=== PATIENT | female | born 1960 | race African-American/Black ===

== ENCOUNTER 2025-03-24 11:19 | Emergency (ER) | payer SELFPAY ==
[2025-03-24] VITALS (10 sets, daily range): BP systolic 118–163; BP diastolic 78–86; PULSE 68–83; RESP 13–20; TEMP 36.6–36.7; O2SAT 95–100
--- NOTE | 2025-03-24 11:23 | PC.NURSE ---
FSBS 119. RN Notified
--- NOTE | 2025-03-24 11:26 | ECG_ITS ---
APPROVED REPORT Exam: Resting ECG HR:76 bpm ECG Measurements Heart Rate 76 AXES MI 199 P 58 QRSd 82 QRS 59 QT 372 T 19 QTc 403 Conclusion SINUS RHYTHM NORMAL ECG UNCONFIRMED REPORT Normal sinus rhythm. No ST elevations or depressions. Isolated T wave inversions in lead III that are nonspecific Electronically signed by : ELFEGO GOODMAN, 03/24/2025 16:18:16
--- NOTE | 2025-03-24 11:27 | XR_ITS ---
FINAL REPORT CLINICAL HISTORY: Nonspecific chest pain FINDINGS: A portable view of the chest is obtained. No prior exam for comparison. Cardiac and mediastinal silhouettes are normal. The lungs are clear. There is no pleural effusion or pneumothorax. IMPRESSION: No acute process on this portable exam. Reviewed, Interpreted and Dictated by Eliza Jimenez MD Transcribed by Trang Bender Authenticated and [facility]
--- NOTE | 2025-03-24 11:36 | HMH.EDGENADL ---
Discharge Plan Disposition Patient Disposition: Home, Self-Care Condition: Good Prescriptions Prescriptions: No Action atorvastatin [Lipitor] 10 mg Tablet 10 mg PO DAILY aspirin 325 mg Tablet 325 mg PO DAILY enalapril maleate 20 mg Tablet 20 mg PO DAILY glimepiride 1 mg Tablet 1 mg PO DAILY amlodipine 10 mg Tablet 10 mg PO DAILY dapaglifloz propaned-metformin [Xigduo XR] 5-1,000 mg Tablet, Ir - Er, Biphasic 24hr 1 tab PO DAILY Referrals Follow up/Referrals: Filemon Lara MD [Staff Physician, Cardiology] - See instructions Provider,MD Ruby [Primary Care Provider, Medical] - See instructions Activity Restrictions/Add. Instructions Additional Instructions/Restrictions: You do not have evidence of a heart attack today, however I do want you to follow-up with a engraver block. I am referring you to Dr. Lara. I encourage you to call the number provided to you over the next day or 2 to schedule an appointment. If you develop any new or worsening symptoms, such as worsening chest pain, shortness of breath, pain in your chest that radiates to your jaw, arm or back, return to the emergency department for evaluation. Clinical Impressions Clinical Impression: Chest pain Stand Alone Forms Stand Alone Forms: Work/School Release Print Language Print Language: Monegasque Discharge ED Provider: Baltazar Rose General Adult HPI General Chief complaint: Chest Pain Stated complaint: Chest Pain Time Seen by Provider: 03/24/25 11:22 History of Present Illness HPI narrative: Tirso Dominguez is a 64F with a past medical history of DM and HTN who presents to the ED for complaints of chest pain. 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 She denies any radiation of pain to her arm or back. She states similar things have happened intermittently in the past, most recently in June of last year. She denies any tobacco use or history of heart attacks, blood clots, hormone use, leg swelling, vomiting, or sweatiness. She states that she takes 325mg ASA daily and took it this morning. Related Data Home Medications ?Medication ?Instructions ?Recorded ?Confirmed amlodipine 10 mg tablet 10 mg PO DAILY 03/24/25 03/24/25 aspirin 325 mg tablet 325 mg PO DAILY 03/24/25 03/24/25 atorvastatin 10 mg tablet (Lipitor) 10 mg PO DAILY 03/24/25 03/24/25 dapagliflozin propaned 5 1 tab PO DAILY 03/24/25 03/24/25 mg-metformin ER 1,000 mg tablet, ext rel 24hr (Xigduo XR) enalapril maleate 20 mg tablet 20 mg PO DAILY 03/24/25 03/24/25 glimepiride 1 mg tablet 1 mg PO DAILY 03/24/25 03/24/25 Allergies Allergy/AdvReac Type Severity Reaction Status Date / Time No Known Allergies Allergy Verified 03/24/25 11:53 [facility] Disclaimer: The information contained in this section may have been updated after the patient was seen, as this information can be updated by other users. Social History Smoking Status: Never smoker alcohol intake: never current occupational status: employed Travel in the last 8 weeks?: None ROS Obtained: Yes Systems reviewed as appropriate & no additional complaints except as documented Physical Exam General General appearance: alert and in no apparent distress Head Head exam: atraumatic Eye Eye exam: Present normal appearance ENT ENT exam: Present normal external ear exam Neck Neck exam: Present full ROM Chest Chest inspection: Present symmetric chest wall rise Respiratory Respiratory exam: Present normal lung sounds bilaterally; Absent respiratory distress, wheezes or stridor Cardiovascular Cardiovascular exam: Present regular rate and normal rhythm Abdominal Exam Abdominal exam: Present soft; Absent distention, tenderness or guarding Extremities Exam Extremities exam: Present normal inspection Back Exam Back exam: Present normal inspection Neurological Exam Neurological exam: Present alert and oriented X3 Psychiatric Psychiatric exam: Present normal affect Skin Skin exam: Present warm and dry Medical Decision Making Medical Records Screening: Per USPSTF and CDC recommendations, given the prevalence of disease in our region, it is our hospital?s policy to screen for HIV and viral Hepatitis for all patients aged 18 and over and those with ongoing risk factors. Darrin Inquiry Pt receiving controlled substance: No Vital Signs: 03/24/25 11:40 03/24/25 11:44 03/24/25 11:57 Temperature 97.9 F Temperature Source Oral Pulse Rate 81 70 Pulse Rate [Left Radial] 71 Respiratory Rate 13 20 Blood Pressure 130/83 Blood Pressure [Right Arm] 163/83 H Blood Pressure Mean 99 Blood Pressure Mean [Right Arm] 109 02 Sat by Pulse Oximetry 100 100 Oxygen Delivery Method Room Air 03/24/25 12:00 03/24/25 12:30 03/24/25 13:00 Temperature Temperature Source Pulse Rate 83 75 71 Pulse Rate [Left Radial] Respiratory Rate 14 17 20 Blood Pressure 126/86 118/80 133/81 Blood Pressure [Right Arm] Blood Pressure Mean 96 90 Blood Pressure Mean [Right Arm] 02 Sat by Pulse Oximetry 100 100 95 Oxygen Delivery Method 03/24/25 13:30 03/24/25 14:00 03/24/25 14:30 Temperature Temperature Source Pulse Rate 69 68 69 Pulse Rate [Left Radial] Respiratory Rate 16 18 17 Blood Pressure 135/78 140/78 140/78 Blood Pressure [Right Arm] Blood Pressure Mean Blood Pressure Mean [Right Arm] 02 Sat by Pulse Oximetry 96 96 100 Oxygen Delivery Method 03/24/25 15:31 Temperature 98.1 F Temperature Source Pulse Rate 69 Pulse Rate [Left Radial] Respiratory Rate 20 Blood Pressure 140/78 Blood Pressure [Right Arm] Blood Pressure Mean Blood Pressure Mean [Right Arm] 02 Sat by Pulse Oximetry Oxygen Delivery Method Room Air Lab Data Lab Results 03/24/25 11:35: VBG pH 7.37, VBG pCO2 36.4, VBG pO2 52.3 H, VBG HCO3 20.9 L, VBG Total CO2 22.0 L, VBG O2 Saturation 85.4 H, VBG Base Excess -3.7 L, VBG Lactic Acid 2.8 H 03/24/25 11:40: WBC 4.9, RBC 5.31, Hgb 12.4, Hct 38.1, MCV 71.8 L, MCH 23.4 L, MCHC 32.5, RDW 15.6, Plt Count 276, MPV 9.8, Neut % (Auto) 38.2, Lymph % (Auto) 47.2, Harlan % (Auto) 9.3, Eos % (Auto) 4.5, Baso % (Auto) 0.4, Neut # (Auto) 1.9, Lymph # (Auto) 2.3, Harlan # (Auto) 0.5, Eos # (Auto) 0.2, Baso # (Auto) 0.0, D-Dimer 0.82 H, Sodium 141, Potassium 4.1, Chloride 108 H, Carbon Dioxide 22, Anion Gap 15.1 H, BUN 14, Creatinine 0.90, Estimated Creat Clear 71, Estimated GFR 63, Est GFR ( Amer) 76, Glucose 117 H, Calcium 9.9, Total Bilirubin 0.4, AST 34, ALT 32, Alkaline Phosphatase 61, Troponin I < 0.01, NT-Pro-B Natriuret Pep < 20.0, Total Protein 7.3, Albumin 4.7, Globulin 2.6, Albumin/Globulin Ratio 1.8, Lipase 259 03/24/25 14:43: Troponin I < 0.01 03/24/25 11:40 03/24/25 11:40 Orders (Tests/Meds): ED MEDICATIONS Discontinued Medications Generic Name Dose Route Start Last Admin Trade Name Freq PRN Reason Stop Dose Admin Lactated Ringer's 1,000 mls @ 150 mls/hr 03/24/25 12:45 03/24/25 12:53 Lactated Ringer's 1000 Ml Bag IV 04/23/25 12:44 150 mls/hr .[id number] JESSIKA Administration Nitroglycerin 0.4 mg 03/24/25 11:27 03/24/25 11:55 Nitroglycerin 0.4mg Sl Tablet SL 03/24/25 11:28 0.4 mg ONCE ONE Administration ORDERS Category Date Time Status CXR --portable [XR chest portable] Stat Exams 03/24/25 11:27 Completed BNP [NT Pro Brain Natriuretic Pep.] Stat Lab 03/24/25 11:40 Completed CBC w/Auto Diff [Complete Blood Count Auto Diff] Stat Lab 03/24/25 11:40 Completed CMP [Comprehensive Metabolic Panel] Stat Lab 03/24/25 11:40 Completed D-Dimer Stat Lab 03/24/25 11:40 Completed Lipase Stat Lab 03/24/25 11:40 Completed Troponin I Q3H Lab 03/24/25 14:43 Completed Troponin I Stat Lab 03/24/25 11:40 Completed VBG [Venous Blood Gas] Stat RT 03/24/25 11:35 Completed ECG Data Tracing #1: I reviewed this ECG and interpreted as documented below: Normal sinus rhythm. No ST elevation or depression. Isolated T wave inversions in lead III but nonspecific. QTc normal at 403 HEART Score History (anamnesis): Moderately suspicious ECG: Normal Age: 45-65 years Risk factors: 1-2 risk factors Troponin: </= normal limit HEART Score: 3 Medical Decision Narrative: Tirso Dominguez is a 64F with a past medical history of DM and HTN who presents to the ED for complaints of chest pain. 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 She denies any radiation of pain to her arm or back. She states similar things have happened intermittently in the past, most recently in June of last year. She denies any tobacco use or history of heart attacks, blood clots, hormone use, leg swelling, vomiting, or sweatiness. She states that she takes 325mg ASA daily and took it this morning. On arrival, patient is normotensive, heart rate within normal limits, breathing roughly on room air with oxygen saturation 100% on room air. Physical exam, as stated above, revealed an overall well appearing female in no significant distress. She is speaking full sentences, GCS 15. Cardiopulmonary exam is unremarkable. Abdomen soft, nontender nondistended. Patient does not smoke. Differential diagnosis includes, but is not limited to: ACS, pulmonary embolism, pneumonia, pericarditis, myocarditis, pneumothorax, among others. The most morbid conditions were considered and workup was based on these. Workup in the emergency department included: Troponin, 1 L lactated ringer, D-dimer, CMP, BNP, lipase, CBC with differential, VBG with lactic acid, chest x-ray, EKG. Patient was given 1 sublingual nitroglycerin Workup showed no leukocytosis, no anemia, D-dimer elevated at 0.82, however with age adjustment, is negative. pH normal at 7.37, lactate mildly elevated 2.8. Bicarb mildly low at 20.9. Sodium normal at 141, potassium normal at 4.1, anion gap mildly elevated 15.1, likely from mildly elevated lactic acid. No SERENITY. Troponin less than 0.01 x 2. BNP negative at less than 20. Lipase normal at 259. EKG is nonischemic. See interpretation above Chest x-ray interpreted by me personally. No focal consolidation, no pneumothorax, no widening of the mediastinum. No enlargement of the cardiac silhouette. Unremarkable chest x-ray. See radiology interpretation for additional details. Patient did have some relief of her symptoms with nitroglycerin. Her heart score is 3. Given this, it is felt the patient is appropriate for discharge at this time with outpatient cardiology follow-up. Will give referral to Dr. Lara. Patient was given strict return precautions for any worsening symptoms. All questions were answered. She demonstrated understanding and was in agreement this plan. She was then discharged from the emergency department in stable condition peer Critical Care Critical Care Time Critical Care Time: No
[2025-03-24 11:45] LABS: Hematocrit 38.1 % (37.0-47.0); Hemoglobin 12.4 g/dL (12.2-16.2); Immature Granulocytes % 0.4 %; Mean Corpuscular HGB Conc 32.5 g/dL (31.8-35.4); Mean Corpuscular Hemoglobin 23.4 pg (27.0-31.2); Mean Corpuscular Volume 71.8 fl (81-99); Nucleated Red Blood Cells % 0 %; Platelet Count 276 K/mm3 (142-424); Red Blood Count 5.31 M/mm3 (4.20-5.40); Red Cell Distribution Width-SD 39.0 fL; White Blood Count 4.9 K/mm3 (4.8-10.8)
[2025-03-24 11:50] LABS: VBG PCO2 36.4 mmol/L (35-51); VBG PH 7.37 mmol/L (7.31-7.41); VBG PO2 52.3 mmol/L (28-40)
[2025-03-24 11:51] LABS: Lactate Venous 2.8 mmol/L (0.4-2.0); VBG HCO3 20.9 mmol/L (23-30)
[2025-03-24] MEDS: NITROGLYCERIN 0.4MG SL TABLET 0.4 MG SL (11:55)
[2025-03-24 11:58] LABS: Alanine Aminotransferase 32 U/L (12-78); Albumin Level 4.7 g/dl (3.5-5.0); Albumin/Globulin Ratio 1.8 (1.1-1.8); Alkaline Phosphatase 61 U/L (38-126); Anion Gap 15.1 mEq/L (5-15); Aspartate Amino Transferase 34 U/L (14-36); Bilirubin,Total 0.4 mg/dl (0.2-1.3); Blood Urea Nitrogen 14 mg/dl (7-17); Calcium 9.9 mg/dl (8.4-10.2); Carbon Dioxide 22 mmol/L (22.0-30.0); Chloride 108 mmol/L (98-107); Creatinine Clearance Estimated 71 mL/min (50-200); Creatinine,Serum 0.90 mg/dl (0.52-1.04); Estimated Glomerular Filt Rate 63 ml/min (>60); GFR (African American) 76 ML/MIN (>60); Globulin 2.6 g/dL (1.3-3.2); Glucose 117 mg/dl (74-100); Lipase 259 U/L (23-300); Potassium 4.1 mmoL/L (3.5-5.1); Sodium 141 mmol/L (136-145); Total Protein,Serum 7.3 g/dl (6.3-8.2)
[2025-03-24 12:02] LABS: D-Dimer 0.82 ug/mL (0.0-0.5)
[2025-03-24 12:11] LABS: NT Pro Brain Natriuretic Pep. < 20.0 pg/mL (0-125)
[2025-03-24 12:14] LABS: Troponin I < 0.01 ng/ml (0.00-0.034)
[2025-03-24] MEDS: LACTATED RINGERS 1000ML 1,000 ML 150 ML IV (12:53)
--- NOTE | 2025-03-24 12:56 | PC.NURSE ---
per pt the nitro did help make her pain go away and she is pain free as of right now
[2025-03-24 15:18] LABS: Troponin I < 0.01 ng/ml (0.00-0.034)
[2025-03-24 15:51] LABS: Reflex Lactic Add Lactic Reflex
== END 2025-03-24 15:32 | disposition home or self-care (01) ==
PROVIDERS: Emergency Provider Student in an Organized Health Care Education/Training Program
DX: R07.89 Other chest pain (principal); I10 Essential (primary) hypertension; E11.9 Type 2 diabetes mellitus without complications; E78.5 Hyperlipidemia, unspecified
CPT/HCPCS: 71045; 80053; 82803; 83690; 83880; 84484; 85025; 85378; 93005; 99285; J7120

== ENCOUNTER 2025-04-01 07:07 | Outpatient (CLI) | payer BC, OTHER, SELFPAY ==
[2025-04-01] MEDS: IOPAMIDOL-370 (76%);100ML BOTTLE 85 ML IV (07:45)
[2025-04-01] MEDS: SODIUM CHLORIDE 0.9% 10ML SYR (RAD ONLY) 10 ML IV (07:45)
[2025-04-01] MEDS: 0.9 % SODIUM CHLORIDE 50 ML VIAL IV (07:45)
--- NOTE | 2025-04-01 07:45 | CT_ITS ---
FINAL REPORT TECHNIQUE: The patient was injected with IV contrast. Axial images were obtained through the chest in a PE protocol. 3-D reconstruction images were also performed. Individualized dose reduction techniques using automated exposure control or adjustment of the MA and/or KV according to patient's size were employed. CLINICAL HISTORY: Rule out PE COMPARISON: None FINDINGS: Mediastinal vasculature is adequately opacified. No pulmonary artery filling defects are identified to suggest PE. There is no aortic dissection. There is no axillary adenopathy. There is no hilar or mediastinal mass or adenopathy. The heart size is normal. There is no pericardial or pleural effusion. No suspicious infiltrate or nodule is identified. Limited images of the upper abdomen demonstrate moderate fatty infiltration of the liver. IMPRESSION: No pulmonary embolus, dissection, or aneurysm. Reviewed, Interpreted and Dictated by Vasiliy Ross MD Transcribed by Trang Bender Authenticated and . [facility]
== END 2025-04-01 23:59 | disposition home or self-care (01) ==
LOC: RAD 07:08
PROVIDERS: PCP Nurse Practitioner Family; Visit Provider Nurse Practitioner Family
DX: R79.89 Other specified abnormal findings of blood chemistry (principal); R06.09 Other forms of dyspnea; R07.89 Other chest pain; Z86.79 Personal history of other diseases of the circulatory system
CPT/HCPCS: 71275; Q9967

== ENCOUNTER 2025-04-13 10:45 | Outpatient (CLI) | payer BC, OTHER, SELFPAY ==
--- NOTE | 2025-04-13 | CA_ITS ---
APPROVED REPORT Exam: Pharmacologic Technologist: Elena Isaac Ht: 5 ft 3 in Wt: 188 lbs BSA: 1.88 m2 HR: 84 bpm BP: 142/76 mmHg Stress Test Details Test: Lexiscan HR Resting HR: 84 bpm Max Heart Rate (APMHR): 156.242112 bpm Max HR Achieved: 108 bpm Target HR (85% APMHR): 132.663405 bpm % of APMHR: 69.23 Recovery HR: 100 bpm BP Resting BP: 142.0/76.0 mmHg Max BP: 142.0/76.0 mmHg Recovery BP: 132.0/77.0 mmHg ECG Resting ECG: Sinus rhythm, PVC Stress ECG Conclusion Exercise test stopped due to patient's request, at 3 minutes 44 seconds, due to dyspnea and leg pain. Symptoms: Abdominal cramps Arrhythmias/Ectopy: PAC, PVC ST-T Changes: < than 1.[address] segment changes Conclusion: Non-diagnostic ECG - Lexiscan Electronically signed by : Sofi Smith MD 04/14/2025 13:16:37
--- NOTE | 2025-04-13 11:00 | CA_ITS ---
APPROVED REPORT EXAM: Comprehensive 2D, Doppler, and color-flow Echocardiogram Certified Medication Aide: Claudette Crowder CRT Ht: 5 ft 3 in Wt: 188lbs BSA: 1.88 BP: 144/86 mmHg Indications: Chest Pain, Assess Ejection Fraction, Diabetes, Hyperlipidemia, Hypertension/HDD 2D Dimensions LA Volume 25.70 mL LA Volume Index 13.60 mL/m2 (M/F) 16-34 M-Mode Dimensions RVDd 2.76 cm (0.9-2.6) LA Diam 3.03 cm (1.9-4.0) LVDd 3.97 cm (3.5-5.7) LVDs 2.53 cm (3.5-5.7) IVSd 1.70 cm (0.6-1.1) PWd 0.95 cm (0.6-1.1) EF (Teich) 66.60% FS 36.30% EDV (Teich) 68.80 mL TAPSE 1.95 (<1.7) ESV (Teich) 23.00 mL LV Diastology E Decel Time 150 (160-240 msec) E/A Ratio 0.7 MED A' 8.40 cm/s LAT A' 11.80 cm/s Aortic Valve AO Peak GR. 5.70 mmHg Mitral Valve MV E Max Matthew. 67.0 (40-130 cm/s) MV A Velocity 93.0 (40-130 cm/s) E/A Ratio 0.72 MV PHT 44.0 ms Pulmonary Valve PV Peak Velocity 97.0 (50-150 cm/s) Tricuspid Valve TR P. Velocity 216.00 cm/s RAP Estimate 10.00 mmHg RVSP 28.60 mmHg Left Ventricle The left ventricle is normal size. Left ventricular systolic function is normal. The left ventricular ejection fraction is within the normal range. There is increased left ventricular wall thickness. There is normal LV segmental wall motion. Transmitral Doppler flow pattern suggests impaired LV relaxation. LVEF is 55% Right Ventricle The right ventricle is normal size. The right ventricular systolic function is normal. Atria The left atrium is mildly dilated. The right atrium size is normal. There is no color Doppler evidence of interatrial shunt. Aortic Valve The aortic valve is mildly thickened. There is no hemodynamically significant aortic valvular stenosis. No aortic regurgitation is present. Mitral Valve The mitral valve is normal in structure. No evidence of mitral valve stenosis. Trace mitral regurgitation is present. Tricuspid Valve The tricuspid valve leaflets are thin and pliable. Trace tricuspid regurgitation. There is insufficient TR jet to estimate RVSP. Pulmonic Valve The pulmonary valve is grossly normal in structure. Trace pulmonic valve regurgitation is present. Great Vessels The aortic root is normal in size. IVC is normal in size and collapses >50% with inspiration. Pericardium There is no pericardial effusion. Other Information Study Quality: Fair Conclusion Normal biventricular systolic function. Mild LA dilation. No significant valvular stenosis or regurgitation. Electronically signed by : Sofi Smith MD 04/15/2025 19:02:07
--- NOTE | 2025-04-13 12:00 | NM_ITS ---
APPROVED REPORT Exam: Nuclear Stress Test Indication: cp..soa..fatigue Patient Location: Outpatient Stress Tech: Elena Isaac NM Tech:Jennifer BoyleSELENE RT(R)(N) Ht: 5 ft 3 in Wt: 178 lbs Bra Size: 42d HR: 83 bpm BP: 142/76 mmHg BSA: 1.84 m2 TID: 1.49 BMI: 31.5 History: cp..soa..fatigue Procedure: Patient received 0.4 mg of intravenous Lexiscan, resting heart rate 83 bpm, resting blood pressure 142/76 mmHg, with Lexiscan maximum heart rate achieved was 107 bpm which is 85 % of the maximum predicted heart rate and blood pressure was 132/64 mmHg. With Lexiscan, patient denied any complaint of chest pain. Cardiac Stress and Resting SPECT Images: Cardiac Stress and Resting SPECT images were obtained using technetium 99m Myoview 31.6 mCi stress and 10.52 mCi at rest. Resting and stress imaging in supine and prone positions demonstrate no evidence of fixed or reversible perfusion defects. There is increase in transient ischemic dilatation ratio (TID 1.49), which may be suggestive of possible multivessel disease or balanced ischemia. Gated imaging demonstrates normal global and regional LV systolic function. LVEF is calculated 55%. Conclusion: No evidence of fixed or reversible perfusion defects. There is increase in transient ischemic dilatation ratio (TID 1.49), which may be suggestive of possible multivessel disease or balanced ischemia. Gated imaging demonstrates normal global and regional LV systolic function. LVEF is calculated 55%. Electronically signed by : Sofi Smith MD 04/14/2025 13:01:17
[2025-04-13] MEDS: SODIUM CHLORIDE 0.9% 10ML SYR (RAD ONLY) 10 ML IV ×2 (14:20)
[2025-04-13] MEDS: ISOTOPE MYOVIEW (PER STUDY) 1 DOSE IV (14:20)
== END 2025-04-13 23:59 | disposition home or self-care (01) ==
LOC: RT 10:46
PROVIDERS: Visit Provider Nurse Practitioner Family
DX: I11.9 Hypertensive heart disease without heart failure (principal); I49.1 Atrial premature depolarization; I49.3 Ventricular premature depolarization; E78.5 Hyperlipidemia, unspecified; R94.39 Abnormal result of other cardiovascular function study; Z86.79 Personal history of other diseases of the circulatory system
CPT/HCPCS: 78452; 93016; 93017; 93018; 93306; A9502; J2785

== ENCOUNTER 2025-04-27 07:25 | Day surgery (SDC) | payer BC, OTHER, SELFPAY ==
[2025-04-27] VITALS (12 sets, daily range): BP systolic 124–158; BP diastolic 71–87; PULSE 63–80; RESP 17–19; O2SAT 94–98; BMI 33.6; BMI 26.8; BMI 33.5
--- NOTE | 2025-04-27 07:07 | IR_ITS ---
APPROVED REPORT Patient Location: Outpatient PROCEDURES Left heart catheterization Left ventriculogram Selective coronary angiogram INDICATION Abnormal Myoview, Angina pectoris Informed consent was obtained prior to the procedure. COMPLICATIONS NONE Estimated Blood Loss: LESS THAN 10 ML TECHNIQUE One percent lidocaine used to anesthetize the right anterior aspect of the wrist. The right radial artery was accessed via the Seldinger technique. A 6 Romansh sheath was placed in the right radial artery. 2.5 mg of Verapamil, 800 mcg of nitroglycerin, 1mg Lidocaine and 5000 U Heparin were given through the arterial sheath. The JL3 and multipurpose catheter was also used to perform left heart catheterization, left ventriculogram and selective coronary angiogram. At the end of the procedure the sheath was removed good hemostasis was achieved using Traclet band, patient was transferred to the postop holding area in stable condition. 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 Recommend CCTA to determine if the right coronary artery has a malignant course 2. Medical management with risk factor modification Electronically signed by : Filemon Lara MD 04/27/2025 12:19:33
[2025-04-27 08:35] LABS: Hematocrit 39.4 % (37.0-47.0); Hemoglobin 12.4 g/dL (12.2-16.2); Immature Granulocytes % 0.4 %; Mean Corpuscular HGB Conc 31.5 g/dL (31.8-35.4); Mean Corpuscular Hemoglobin 22.7 pg (27.0-31.2); Mean Corpuscular Volume 72.2 fl (81-99); Nucleated Red Blood Cells % 0 %; Platelet Count 281 K/mm3 (142-424); Red Blood Count 5.46 M/mm3 (4.20-5.40); Red Cell Distribution Width-SD 39.5 fL; White Blood Count 4.7 K/mm3 (4.8-10.8)
[2025-04-27 08:37] LABS: Anion Gap 12.2 mEq/L (5-15); Blood Urea Nitrogen 16 mg/dl (7-17); Calcium 9.3 mg/dl (8.4-10.2); Carbon Dioxide 26 mmol/L (22.0-30.0); Chloride 105 mmol/L (98-107); Creatinine Clearance Estimated 76 mL/min (50-200); Creatinine,Serum 1.00 mg/dl (0.52-1.04); Estimated Glomerular Filt Rate 56 ml/min (>60); GFR (African American) 67 ML/MIN (>60); Glucose 164 mg/dl (74-100); Potassium 4.2 mmoL/L (3.5-5.1); Sodium 139 mmol/L (136-145)
[2025-04-27] MEDS: VERAPAMIL 2.5MG/ML 2ML VIAL 2.5 MG IV (10:08)
[2025-04-27] MEDS: 0.9 % SODIUM CHLORIDE 500 ML 25 ML IV (10:08)
[2025-04-27] MEDS: HEPARIN 1,000 UNITS/ML 10ML VIAL (CATH LAB) 5000 UNIT IV (10:08)
[2025-04-27] MEDS: LIDOCAINE 1% 10ML MDV 10 ML IJ (10:08)
[2025-04-27] MEDS: NITROGLYCERIN 800MCG/8ML SYR (CATH LAB) 800 MCG IA (10:08)
[2025-04-27] MEDS: HEPARIN 1,000 UNITS/500ML NS (CATH LAB) 3000 UNIT IV (10:09)
[2025-04-27] MEDS: FENTANYL 100MCG/2ML VIAL 50 MCG IV (10:34)
[2025-04-27] MEDS: MIDAZOLAM HCL 1MG/ML 5ML VIAL 1 MG IV (10:34)
[2025-04-27] MEDS: IOPAMIDOL-370 (76%);100ML BOTTLE 90 ML IV (11:03)
== END 2025-04-27 14:07 | disposition home or self-care (01) ==
PROVIDERS: Visit Provider Internal Medicine
PROC: 4A023N7 Measurement of Cardiac Sampling and Pressure, Left Heart, Percutaneous Approach (ICD-10-PCS; CPT 93452; principal; 2025-04-27 08:45)
DX: I25.118 Atherosclerotic heart disease of native coronary artery with other forms of angina pectoris (principal); R94.39 Abnormal result of other cardiovascular function study; E11.9 Type 2 diabetes mellitus without complications; I10 Essential (primary) hypertension; E78.2 Mixed hyperlipidemia; Z79.82 Long term (current) use of aspirin; Z79.84 Long term (current) use of oral hypoglycemic drugs; Z79.899 Other long term (current) drug therapy; Z79.83 Long term (current) use of bisphosphonates
CPT/HCPCS: 80048; 85025; 93458; 99152; C1725; C1769; J1200; J1644; J2003; J3010; J7040; Q9967

== ENCOUNTER 2025-05-24 11:26 | Outpatient (CLI) | payer BC, OTHER, SELFPAY ==
[2025-05-24 12:08] VITALS: BP 146/74; PULSE 61; RESP 18; O2SAT 100
[2025-05-24 12:10] VITALS: BMI 33.6
[2025-05-24] MEDS: IVABRADINE HCL 7.5MG TABLET PO (13:00)
[2025-05-24] MEDS: METOPROLOL TARTRATE 50MG TABLET PO (13:00)
--- NOTE | 2025-05-24 13:00 | CT_ITS ---
APPROVED REPORT Laboratory Asst: CLINICAL INDICATION Chest Pain TECHNIQUE Image Acquisition: A 128 slice MDCT scanner (Gravitanta View) was used for data acquisition. A noncontrast coronary calcium scan was performed. A CT attenuation threshold of 130 Hounsfield units (HU) was used for the detection of calcium in contiguous voxels of 1 sq mm in area to be counted as individual lesions. Bolus tracking in the ascending aorta with a threshold of 180 HU was performed. Immediately afterwards, ECG synchronized cardiac CT was then performed from the cardiac base to apex using retrospective gating with ECG tube current modulation. A total of 85 mL of Isovue 370 mg/mL contrast medium was administered at 5 mL/sec followed by a saline flush using a biphasic injection protocol. A tube voltage of 120 KVp was used. The patient received the following medications prior to the cardiac CT. 50 mg of oral metoprolol 15 mg of oral ivabradine 0.8 mg of sublingual nitroglycerin The average heart rate at the time of acquisition was 59 bpm and regular. Image Reconstruction Transaxial images were reconstructed at 0.67 mm slide thickness. Data was reviewed interactively on an advanced workstation capable of 2 and 3-dimensional displays in all conventional reconstruction formats, including multiplanar reformations, maximum intensity projections, curved multiplanar reformations, and volume rendered reconstructions. When applicable, selected routine images describing the relevant coronary anatomy and pathology were saved and sent to PACS. Complications None Technical Quality Overall image quality was fair. Coronary artery opacification was adequate. Total DLP (Dose-Length Product) is 1204.9 mGy-cm. The reported value represents the total of one or more individual components during the CT acquisition of this date and at this time, and as such, the same value may appear in more than one CT report depending on the interpreting/reporting physicians. COMPARISON None FINDINGS CT Coronary Calcium Scoring LMA (Left Main Artery) = 0 LAD (Left Anterior Descending) = 65 LCX (Left Coronary Circumflex) = 0 RCA (Right Coronary Artery) = 50 Total Calcium Score = 115 using the AJ-130 method. The observed calcium score of 115 is at 83rd percentile for subjects of the same age, sex, and race/ethnicity. The interpretation of the calcium heart score is based on the following continuum*: 0 = no calcified plaque detected (risk of coronary artery disease is very low ??? less than 5%) 1-10 = calcium detected in extremely minimal levels (risk of coronary diseases is still low ??? less than 10%) 11-100 = mild levels of plaque detected with certainty (mild or minimal narrowing of heart arteries is likely) 101-400 = definite,at least moderate levels of plaque detected (relatively high risk of a heart attack within 3-5 years) >401-999 = extensive levels of plaque detected (high risk of heart attack, high levels of vascular disease are present, high likelihood of at least one significant coronary narrowing) *The calcium heart score quantifies the burden of coronary calcification/plaque in the coronary arteries. The calcium heart score is not able to evaluate the presence or burden of non-calcified (i.e. soft) plaque. There is no identifiable calcification in the aortic valve, mitral annulus or mitral valve, pericardium, or myocardium. Coronary CT Angiography The coronary arterial system is right dominant. Quantitative Stenosis Grading: Left Main (LM): The left main originates normally from the left sinus of Valsalva. The LM bifurcates into the left anterior descending artery and left circumflex artery. The LM is patent with no evidence of atherosclerosis. Left Anterior Descending (LAD) and Diagonal Branches: The LAD gives off 3 diagonal branch(es). Extensive mild/calcified plaque in the proximal segment with up to 25-49% luminal stenosis. There is no evidence of LAD-myocardial bridge. Left Circumflex (LCX) and Obtuse Marginals (OM): The LCX gives off 1 Obtuse Marginal (OM) branch(es). The LCX and its branches are patent with no evidence of atherosclerosis. Right Coronary Artery (RCA): The RCA originates from the right sinus of Valsalva. The RCA has an acute-angle take-off at its origin. The RCA gives off a posterior descending artery (PDA) and posterolateral (PL) branches. Non-Coronary Cardiac Findings: Analysis of the left ventricular (LV) structure and function was performed after 3-D reconstruction of the LV from axial images, with user-corrected automatic contouring for assessment of LV volumes and user-defined reconstruction from oblique planes for measurement of 3-D cardiac structure and function. -The left ventricle systolic function is normal. -There is no left atrial appendage filling defect. Two right pulmonary veins and two left pulmonary veins drain normally into the left atrium. -No pericardial thickening or calcification. -Central and branch pulmonary arteries in the [id number] are unremarkable. -Thoracic aorta within the visualized thoracic aortic-branches in the [id number] is unremarkable. Extracardiac Structures No significant extra-cardiac findings. Note, however, that this study is focused on the cardiac findings. IMPRESSION -Presence of coronary calcification with an Agatston score = 115 using the AJ-130 method. -The observed calcium score of 115 is at 83rd percentile for subjects of the same age, sex, and race/ethnicity. -Mild, nonobstructive atherosclerotic coronary disease, with no evidence of significant flow-limiting atherosclerosis of the coronary arteries. -CAD-RADS 2. Management recommendations per ACC/AHA guidelines*, as clinically appropriate. -Notably, the RCA is characterized by an acute-angle take-off at its origin. In the setting of angina, further evaluation with cardiac catheterization may be suggested to evaluate the hemodynamic significance of the acute RCA take-off and correlation of this finding with the patient's symptoms. *Recommendations: CAD RADS 0: Reassurance. Consider non-atherosclerotic causes of chest pain. CAD RADS 1: Consider non-atherosclerotic causes of chest pain. Consider preventive therapy and risk factor modification. CAD RADS 2: Consider non-atherosclerotic causes of chest pain. Consider preventive therapy and risk factor modification, particularly for patients with nonobstructive plaque in multiple segments. CAD RADS 3: Consider further functional testing. Consider symptom-guided anti-ischemic and preventive pharmacotherapy as well as risk factor modification per published guideline statements. CAD RADS 4A: Consider further functional testing or invasive coronary angiography with revascularization per published guideline statements. Consider symptom-guided anti-ischemic and preventive pharmacotherapy as well as risk factor modification per published guideline statements. CAD RADS 4B: Invasive coronary angiography recommended with revascularization per published guideline statements. Consider symptom-guided anti-ischemic and preventive pharmacotherapy as well as risk factor modification per published guideline statements. CAD RADS 5: Consider invasive angiography and/or viability assessment with revascularization per published guideline statements. Consider symptom-guided anti-ischemic and preventive pharmacotherapy as well as risk factor modification per published guideline statements. CRITICAL RESULT None COMMUNICATION Per this written report The coronary and cardiac findings of this CCTA were reviewed, reported, and signed by Robin Smith MD ([facility]) Conclusion Electronically signed by : Sofi Smith MD 05/31/2025 12:31:11
[2025-05-24 13:30] VITALS: BP 155/83; PULSE 63; RESP 18; O2SAT 99
[2025-05-24 13:35] VITALS: BP 146/74; PULSE 60; RESP 18; O2SAT 99
[2025-05-24 13:40] VITALS: BP 131/86; PULSE 58; RESP 18; O2SAT 100
[2025-05-24] MEDS: SODIUM CHLORIDE 0.9% 10ML SYR (RAD ONLY) 10 ML IV (13:41)
[2025-05-24] MEDS: 0.9 % SODIUM CHLORIDE 50 ML VIAL IV (13:41)
[2025-05-24] MEDS: IOPAMIDOL-370 (76%);100ML BOTTLE 85 ML IV (13:41)
== END 2025-05-24 14:00 | disposition home or self-care (01) ==
LOC: RAD 11:28
PROVIDERS: PCP Nurse Practitioner; Visit Provider Nurse Practitioner
DX: I25.118 Atherosclerotic heart disease of native coronary artery with other forms of angina pectoris (principal); R93.1 Abnormal findings on diagnostic imaging of heart and coronary circulation
CPT/HCPCS: 75574; Q9967